=== PATIENT | male | born 1955 | race Caucasian/White ===

== ENCOUNTER 2022-11-08 12:52 | Day surgery (SDC) | payer MEDICARE ==
[~2022-11-08] VITALS: Ht 177.8 cm; Wt 55.4 kg
[2022-11-08] MEDS ORDERED: CYCL10 PO (13:24)
[2022-11-08] MEDS ORDERED: CLINGEL TOP (13:24)
[2022-11-08] MEDS ORDERED: Hydrocortiso453.6 G1 TP (13:25)
[2022-11-08] MEDS ORDERED: Prednisone10 MG (13:26)
[2022-11-08] MEDS ORDERED: RIZATRIPTAN5 MG PO (13:26)
[2022-11-08] MEDS ORDERED: Ventolin/Prove6.7 GM (13:27)
[2022-11-08] MEDS ORDERED: VALA500 (13:27)
[2022-11-08] MEDS ORDERED: SILDENAFIL CIT100 MG PO (13:27)
--- NOTE | 2022-11-08 13:39 | NUR ---
11/08/22 Nina1 Tracie Barriga PT RESTING COMFORTABLY IN BED, FELL ASLEEP AT ONE TIME. NO QUESTIONS OR CONCERNS AT THIS TIME.
--- NOTE | 2022-11-08 14:52 | NUR ---
11/08/22 1452 Rhonda Miranda LIDOCAINE 2% WITH EPI 1:100,000 VERIFIED AND DILUTED 1:1 WITH NORMAL SALINE TO MAKE LIDOCAINE 1% WITH EPI 1:200,000 FOR INJECTION AT [facility]. 3ML INJECTED INITIALLY IN PREOP. [facility] MONITORING PT FOR LOCAL NURSE SEDATION CASE.
[2022-11-08 15:14] VITALS: BP 123/81
== END 2022-11-08 15:38 | disposition home or self-care (01) ==
LOC: ORSCSDS 12:52
PROVIDERS: Otolaryngology
PROC: 03B Upper Arteries, Excision (ICD-10-PCS; principal; 2022-11-08 14:15)
DX: M31.6 Other giant cell arteritis (principal)
CPT/HCPCS: 88305; 88313; J2250; J7120

== ENCOUNTER 2023-01-02 09:57 | Emergency (ER) | payer MEDICARE ==
[~2023-01-02] VITALS: Ht 175.3 cm; Wt 56.7 kg
[~2023-01-02 09:57] MED LIST: CLINGEL TOP; CYCL10 PO; Hydrocortiso453.6 G1 TP; Prednisone10 MG; RIZATRIPTAN5 MG PO; SILDENAFIL CIT100 MG PO; VALA500; Ventolin/Prove6.7 GM
[2023-01-02 10:18] VITALS: BP 134/91
== END 2023-01-02 11:06 | disposition home or self-care (01) ==
LOC: ER 09:57
DX: A51.9 Early syphilis, unspecified (principal); Z79.899 Other long term (current) drug therapy
CPT/HCPCS: 96372; 99282-25; J0561

== ENCOUNTER 2023-01-13 14:05 | Inpatient (IN) | payer MEDICARE ==
[~2023-01-13] VITALS: Ht 177.8 cm; Wt 56.5 kg
[2023-01-13 14:41] LABS: BASOPHILS ABSOLUTE AUTO 0.04 K/mm3 (0.00-0.23); BASOPHILS PERCENT AUTO 1 % (0-2); EOSINOPHILS ABSOLUTE AUTO 0.17 K/mm3 (0.00-0.68); EOSINOPHILS PERCENT AUTO 3 % (0-6); Hematocrit 30.5 % (37.0-53.0); Hemoglobin 10.1 g/dL (13.5-17.5); IMMATURE GRAN ABSOLUTE AUTO 0.13 K/mm3 (0.00-0.10); IMMATURE GRAN PERCENT AUTO 2 % (0-1); LYMPHOCYTES ABSOLUTE AUTO 1.14 K/mm3 (0.84-5.20); LYMPHOCYTES PERCENT AUTO 18 % (21-46); MONOCYTES ABSOLUTE AUTO 0.94 K/mm3 (0.16-1.47); MONOCYTES PERCENT AUTO 15 % (4-13); Mean Corpuscular HGB 30.8 pg (26.0-34.0); Mean Corpuscular HGB Conc 33.1 g/dL (31.5-36.5); Mean Corpuscular Volume 93 fL (80-100); NEUTROPHILS ABSOLUTE AUTO 3.98 K/mm3 (1.96-9.15); NEUTROPHILS PERCENT AUTO 62 % (41-73); Platelet Count 479 K/mm3 (150-400); RDW Coefficient Variation 16.3 % (11.7-14.2); RDW Standard Deviation 55.9 fL (35.1-46.3); Red Blood Cell Count 3.28 M/mm3 (4.30-5.90)
[2023-01-13 14:58] LABS: Albumin, Blood 2.4 g/dL (3.4-5.0); Albumin/Globulin Ratio 0.4 (0.8-1.8); Bilirubin, Total 0.3 mg/dL (0.1-1.0); Bun/Creatinine Ratio 16.1 (12.0-20.0); Calcium, Blood 9.2 mg/dL (8.5-10.1); Creatinine, Blood 1.18 mg/dL (0.60-1.20); Globulin, Blood 5.4 g/dL (2.2-4.0); Potassium, Blood 4.1 mmol/L (3.5-5.5); Total Protein, Blood 7.8 g/dL (6.4-8.2)
[2023-01-13 17:37] LABS: Glucose, CSF 57 mg/dL (40-70)
[2023-01-13 17:51] LABS: RBC Count, CSF 45 /mm3 (0-0); WBC Count, CSF 8 /mm3 (0-5)
[2023-01-13 17:52] LABS: Appearance, CSF Clear (Clear); Color, CSF No Color (No Color)
[2023-01-13 18:11] LABS: Appearance, CSF Clear (Clear); Color, CSF No Color (No Color)
[2023-01-13 18:12] LABS: RBC Count, CSF 1 /mm3 (0-0); WBC Count, CSF 7 /mm3 (0-5)
[2023-01-13 18:22] LABS: Cryptococcus Neoformans/Gattii Not Detected (NOT DETECT); Enterovirus Not Detected (NOT DETECT); Escherichia Coli K1 Not Detected (NOT DETECT); Haemophilus Influenza Not Detected (NOT DETECT); Herpes Simplex Virus 1 Not Detected (NOT DETECT); Herpes Simplex Virus 2 Not Detected (NOT DETECT); Human Herpesvirus 6 Not Detected (NOT DETECT); Human Parechovirus Not Detected (NOT DETECT); Listeria Monocytogenes Not Detected (NOT DETECT); Neisseria Meningitidis Not Detected (NOT DETECT); Streptococcus Agalactiae Not Detected (NOT DETECT); Streptococcus Pneumoniae Not Detected (NOT DETECT); Varicella Zoster Virus Not Detected (NOT DETECT)
[2023-01-13 18:28] VITALS: BP 151/94
--- NOTE | 2023-01-13 18:49 | NUR ---
ADMISSION NOTE: PATIENT ARRIVES IN ROOM VIA WHEELCHAIR AT AROUND 1823 FROM ER FOR DX'S OF L OCULAR SYPHYLLIS. PATIENT IS A/OX4. CALM, PLEASANT AND COOPERATIVE c CARE. ORIENTATED TO ROOM AND CALL LIGHTS. MEDRIC, ADMISSION, SKIN ASSESSMENT c 2 RN VRIFIERS COMPLETED. NOTED TO HAVE SCAB TO BUE AND R LEG, BRUISING TO BUE SCATTERED T/O AND SKIN DRYNESS. PATIENT REPORTS LIMITED VISION TO L EYE. PATIENT HAD LUMBAR PUNCTURE DONE IN ED, AWAITING FOR RESULT. VITAL SIGNS REVIEWED. PATIENT IS ON REGULAR DIET. CALL LIGHT IN REACH. BEDSIDE REPORT GIVEN TO JACOB ESCALERA RN AND ERIC CABAN.
[2023-01-13 18:50] LABS: Lymphocytes, CSF 67 % (40-80); Monocytes, CSF 32 % (15-45); Neutrophils, CSF 1 % (0-6)
[2023-01-13 18:56] LABS: Lymphocytes, CSF 82 % (40-80); Monocytes, CSF 18 % (15-45)
[2023-01-14 03:59] VITALS: BP 99/75
[2023-01-14 04:21] LABS: BASOPHILS ABSOLUTE AUTO 0.03 K/mm3 (0.00-0.23); BASOPHILS PERCENT AUTO 1 % (0-2); EOSINOPHILS ABSOLUTE AUTO 0.25 K/mm3 (0.00-0.68); EOSINOPHILS PERCENT AUTO 4 % (0-6); Hematocrit 27.3 % (37.0-53.0); Hemoglobin 9.1 g/dL (13.5-17.5); IMMATURE GRAN PERCENT AUTO 2 % (0-1); LYMPHOCYTES ABSOLUTE AUTO 1.14 K/mm3 (0.84-5.20); LYMPHOCYTES PERCENT AUTO 20 % (21-46); MONOCYTES ABSOLUTE AUTO 0.85 K/mm3 (0.16-1.47); MONOCYTES PERCENT AUTO 15 % (4-13); Mean Corpuscular HGB 30.7 pg (26.0-34.0); Mean Corpuscular HGB Conc 33.3 g/dL (31.5-36.5); Mean Corpuscular Volume 92 fL (80-100); Mean Platelet Volume 8.9 fL (9.1-12.4); NEUTROPHILS ABSOLUTE AUTO 3.48 K/mm3 (1.96-9.15); NEUTROPHILS PERCENT AUTO 60 % (41-73); Platelet Count 454 K/mm3 (150-400); RDW Coefficient Variation 16.7 % (11.7-14.2); RDW Standard Deviation 56.4 fL (35.1-46.3); Red Blood Cell Count 2.96 M/mm3 (4.30-5.90); White Blood Cell Count 5.85 K/mm3 (4.00-11.30)
[2023-01-14 04:46] LABS: Albumin, Blood 2.1 g/dL (3.4-5.0); Albumin/Globulin Ratio 0.4 (0.8-1.8); Bilirubin, Total 0.4 mg/dL (0.1-1.0); Calcium, Blood 8.6 mg/dL (8.5-10.1); Creatinine, Blood 1.23 mg/dL (0.60-1.20); Globulin, Blood 4.9 g/dL (2.2-4.0); Potassium, Blood 4.2 mmol/L (3.5-5.5)
--- NOTE | 2023-01-14 04:46 | NUR ---
PT IS ALERT AND ORIENTED TO PERSON, PLACE, SELF, AND SITUATION. PT HAS BEEN INDEPENDENT IN ROOM, SCDS IN PLACE AND ON. PT DENIES CHEST PAIN/PRESSURE PT IS COOPERATIVE WITH CARE AND BALE TO MAKE HIS NEEDS KNOWN. PT SLEEPING T/O MOST OF SHIFT; RESPIRATIONS EQUAL AND UNLABORED. BED IS LOCKED IN THE LOWEST POSITION WITH CALL LIGHT IN REACH. NO S/S OF DISTRESS NOTED AT THIS TIME.
[2023-01-14 07:30] VITALS: BP 107/71
[2023-01-14 15:19] VITALS: BP 107/65
--- NOTE | 2023-01-14 18:37 | NUR ---
SHIFT SUMMARY PT AOX4, INDEPENDENT IN THE ROOM. STARTED ON CIWA PROTOCOL THIS SHIFT, SCORING IN THE CHART. NO COMPLAINTS FROM THE PT THIS SHIFT. CALL LIGHT WITHIN REACH, BED IN THE LOWEST POSITION. WILL REPORT TO ONCOMING NURSE.
[2023-01-14 19:30] VITALS: BP 120/75
--- NOTE | 2023-01-15 03:30 | NUR ---
PT REPORTS MILD HEADACHE, ASKED PT IS HE WOULD LIKE SOMETHING FOR A HEADACHE; PT RESPONDED "YES". CALLED AND NOTIFIED OF HEADACHE AND ORDERED 650MG OF TYLENOL Q6H FOR MILD PAIN/FEVER.
[2023-01-15 04:09] VITALS: BP 123/78
--- NOTE | 2023-01-15 04:35 | NUR ---
SHIFT SUMMARY PT ALERT AND ORIENTED TO PERSON/SELF, PLACE, TIME, AND SITUATION. PT IS PLEASANT AND COOPERATIVE WITH CARE. PT IS UP INDEPENDENTLY IN ROOM WITH STEADY GAIT. PT HAS SLEPT T/O MOST OF SHIFT; RESPIRATIONS EQUAL AND UNLABORED. PT IS ABLE TO MAKE HIS NEEDS KNOWN AND CALLS APPROPRIATELY. PT DENIES CHEST PAIN/PRESSURE/TIGHTNESS. PT C/O A MILD HEADACHE PAIN, HOSPITALIST CALLED AND ORDERED 650MG OF TYLENOL Q6H PRN FOR MILD PAIN/FEVER; PT MEDICATED PER EMAR AND REPORTS REDUCED PAIN. CIWAS DONE PER PROTOCOL. BED IS LOCKED IN THE LOWEST POSITION WITH CALL LIGHT IN REACH. NO S/S OF DISTRESS NOTED.
--- NOTE | 2023-01-15 05:23 | NUR ---
SHIFT SUMMARY PT IS ALERT AND ORIENTED TO PERSON/SELF, PLACE, TIME, AND SITUATION. PT IS PLEASANT, CALM AND COOPERATIVE WITH CARE. PT DENIES CHEST PAIN/PRESSURE/TIGHTNESS. PT HAS HEPARIN RUNNING AT 13.5U/KG/HR OR 26.2ML/HR; JACOB Arias RN VERIFIED. PT HAS SLEPT OFF AND T/O SHIFT; RESPIRATIONS EQUAL AND UNLABORED. PT IS ABLE TO MAKE HIS NEEDS KNOWN AND CALLS APPROPRIATELY. PT HAS BEEN NPO SINCE MIDNIGHT; DAY SHIFT REPORTED HE IS TO FINISH THE SECOND HALF OF HIS STRESS TEST TODAY 01/15/23. PT HAS USED THE URINAL T/O THE NIGHT WITH ATTENDS IN PLACE. BED IS LOCKED IN THE LOWEST POSITION WITH CALL LIGHT IN REACH.
[2023-01-15 07:56] VITALS: BP 115/82
[2023-01-15 15:48] VITALS: BP 121/84
--- NOTE | 2023-01-15 17:47 | NUR ---
SHIFT SUMMARY NO ACUTE CHANGES THIS SHIFT. PT'S CIWA SCORE REMAINS LOW. MEDICATED FOR A GARCIA PER THE EMAR. ATTEMPTED TO GIVE THE PT A POWERGLIDE BUT HE REFUSED. HE WILL BE HERE FOR 2 WEEKS GETTING IV ABX PER DR. HERNANDES. HE IS SOFT SPOKE AND DOES NOT CALL OFTEN. CALL LIGHT WITHIN REACH, BED IN THE LOWEST POSITION. WILL REPORT TO ONCOMING NURSE.
[2023-01-15 19:17] VITALS: BP 106/71
[2023-01-16 03:21] VITALS: BP 117/78
--- NOTE | 2023-01-16 03:47 | NUR ---
SHIFT SUMMARY PATIENT A/Ox4, VSS, SPO2 97% ON RA. DENIES PAIN NOR DISCOMFORT. WITHOUT S/SX OF ETOH WITHDRAWAL. CONTINUES ON IV ABX THERAPY, TOLERATING WELL. NO ACUTE CHANGES NOTED OVERNIGHT. BED LOCKED AND IN THE LOWEST POSITION, CALL LIGHT WITHIN REACH.
[2023-01-16 05:45] LABS: BASOPHILS ABSOLUTE AUTO 0.04 K/mm3 (0.00-0.23); BASOPHILS PERCENT AUTO 1 % (0-2); EOSINOPHILS ABSOLUTE AUTO 0.26 K/mm3 (0.00-0.68); EOSINOPHILS PERCENT AUTO 3 % (0-6); Hematocrit 30.4 % (37.0-53.0); Hemoglobin 9.9 g/dL (13.5-17.5); IMMATURE GRAN ABSOLUTE AUTO 0.12 K/mm3 (0.00-0.10); IMMATURE GRAN PERCENT AUTO 2 % (0-1); LYMPHOCYTES ABSOLUTE AUTO 1.51 K/mm3 (0.84-5.20); LYMPHOCYTES PERCENT AUTO 20 % (21-46); MONOCYTES ABSOLUTE AUTO 0.88 K/mm3 (0.16-1.47); MONOCYTES PERCENT AUTO 12 % (4-13); Mean Corpuscular HGB 29.6 pg (26.0-34.0); Mean Corpuscular HGB Conc 32.6 g/dL (31.5-36.5); Mean Corpuscular Volume 91 fL (80-100); Mean Platelet Volume 8.7 fL (9.1-12.4); NEUTROPHILS ABSOLUTE AUTO 4.85 K/mm3 (1.96-9.15); NEUTROPHILS PERCENT AUTO 63 % (41-73); Platelet Count 527 K/mm3 (150-400); RDW Coefficient Variation 16.3 % (11.7-14.2); RDW Standard Deviation 54.5 fL (35.1-46.3); Red Blood Cell Count 3.34 M/mm3 (4.30-5.90); White Blood Cell Count 7.66 K/mm3 (4.00-11.30)
[2023-01-16 06:24] LABS: Albumin, Blood 2.1 g/dL (3.4-5.0); Anion Gap 4 mmol/L (6-16); Blood Urea Nitrogen 13 mg/dL (8-24); CO2, Blood 27 mmol/L (21-32); Calcium, Blood 8.9 mg/dL (8.5-10.1); Chloride, Blood 104 mmol/L (98-108); Creatinine, Blood 1.08 mg/dL (0.60-1.20); Glomerular Filtration Rate 76 (60-); Glucose, Blood 127 mg/dL (70-99); Magnesium, Blood 2.2 mg/dL (1.6-2.4); Phosphorus, Blood 2.7 mg/dL (2.5-4.9); Potassium, Blood 4.6 mmol/L (3.5-5.5); Sodium, Blood 135 mmol/L (136-145)
[2023-01-16 07:30] VITALS: BP 132/81
[2023-01-16 15:58] VITALS: BP 131/70
[2023-01-16] MEDS ORDERED: Prednisone10 MG PO (16:37)
[2023-01-16] MEDS ORDERED: VALA500 PO (16:37)
[2023-01-16] MEDS ORDERED: PEPCID40 MG PO (16:38)
--- NOTE | 2023-01-16 18:27 | NUR ---
SHIFT SUMMARY: PT A&O X4. PT PLEASANT AND COOPERATIVE WITH ALL CARE. INDEPENDENT IN ROOM. PT RECEIVED PG IN VASU THIS SHIFT DUE TO PAIN/BURNING W/ PERIPHERAL IV ABX. FLUSHES AND DRAWS WELL. NO S/SX ALCOHOL WITHDRAWAL. RECEIVING IV PENICILLIN Q4 TOLERATING WELL. PT C/O HEADACHE TWICE THIS SHIFT. MEDICATED PER EMAR. CALL LIGHT IN REACH. WILL REPORT TO ONCOMING RN.
[2023-01-16 19:16] VITALS: BP 127/82
[2023-01-17 04:17] VITALS: BP 116/68
--- NOTE | 2023-01-17 04:35 | NUR ---
SHIFT SUMMARY PATIENT A/Ox4, VSS, SPO2 100% ON RA. WITHOUT C/O PAIN NOR DISCOMFORT STATED THIS SHIFT. NO S/Sx OF ETOH WITHDRAWAL. CONTINUES ON IV ABX THERAPY, TOLERATING WELL. PG TO VASU, PATENT, FLUSHING WELL. NO ACUTE CHANGES NOTED OVERNIGHT. BED LOCKED AND IN THE LOWEST POSITION, CALL LIGHT WITHIN REACH.
[2023-01-17 07:45] VITALS: BP 129/89
[2023-01-17 15:29] VITALS: BP 115/77
--- NOTE | 2023-01-17 17:37 | NUR ---
DAYSHIFT SUMMARY Patient alert & oriented x4, independent in the room. Reports no vision in left eye, pupil oval shaped and does not react to light. Patient denies pain or discomfort. Vital signs stable. IV Penicillin administred Q4H.
[2023-01-17 19:06] VITALS: BP 105/66
--- NOTE | 2023-01-18 04:50 | NUR ---
SHIFT SUMMARY PATIENT A/Ox4, PLEASANT AFFECT. WITHOUT C/O PAIN NOR DISCOMFORT STATED THIS SHIFT. CONTINUES ON IV ABX THERAPY, TOLERATING WELL. PG TO VASU, PATENT, FLUSHING WELL. INDEPENDENT IN ROOM. NO ACUTE CHANGES NOTED OVERNIGHT. BED LOCKED AND IN THE LOWEST POSITION, CALL LIGHT WITHIN REACH.
[2023-01-18 07:53] VITALS: BP 120/83
--- NOTE | 2023-01-18 11:10 | NUR ---
ASSUMED CARE OF PATIENT REPORT RECEIVED FROM DOMO REYES. ASSUMED CARE OF PATIENT
[2023-01-18] MEDS ORDERED: B-1100 M1 PO (12:47)
[2023-01-18] MEDS ORDERED: FOLI1 PO (12:47)
[2023-01-18] MEDS ORDERED: ACET325 PO (12:47)
[2023-01-18] MEDS ORDERED: [UNRECOGNIZED DRUG - CODE] IV (12:50)
[2023-01-18 13:47] LABS: SARS-Cov-2 (COVID-19) PCR, MMC NEGATIVE (NEGATIVE)
--- NOTE | 2023-01-18 17:00 | NUR ---
SHIFT SUMMARY AND DISCHARGE PATIENT DISCHARGED TO [facility]. PATIENT ALERT AND INDEPENDENT IN THE ROOM. PATIENT CONTINUES TO HAVE MILD HEADACHE AROUND L EYE. REPORT CALLED TO [facility] PRIOR TO DISCHARGE. POWER GLIDE IN PLACE AT DISCHARGE IN R UPPER ARM. DISCHARGE PAPERS SENT WITH TRANSPORT.
== END 2023-01-18 17:04 | DRG 125 ==
LOC: ER 14:05 → MEDS 18:00
PROVIDERS: Family Medicine; Student in an Organized Health Care Education/Training Program; ADMIT Internal Medicine
PROC: 009U3ZX Drainage of Spinal Canal, Percutaneous Approach, Diagnostic (ICD-10-PCS; principal; 2023-01-13)
DX: A52.71 Late syphilitic oculopathy (principal); N18.31 Chronic kidney disease, stage 3a; E78.5 Hyperlipidemia, unspecified; J44.9 Chronic obstructive pulmonary disease, unspecified; Z66 Do not resuscitate; G43.909 Migraine, unspecified, not intractable, without status migrainosus; I73.9 Peripheral vascular disease, unspecified; N52.9 Male erectile dysfunction, unspecified; G25.81 Restless legs syndrome
CPT/HCPCS: 36415; 62270; 80053; 80069; 82945; 83735; 84157; 85025; 86592; 87070; 87205; 87483; 89051; 94760; 96365-59; 99285-25; A9270; C1751; J2540; J3411; J7050; U0002

== ENCOUNTER 2025-02-25 09:12 | Day surgery (SDC) | payer MEDICARE ==
[~2025-02-25] VITALS: Ht 86.4 cm; Wt 51.2 kg
[~2025-02-25 09:12] MED LIST changes: +ACET325 PO; +B-1100 M1 PO; +Balanced Salt Epinephrine Irrigation Solution 500 mL IR SCH; +FOLI1 PO; +Moxifloxacin HCL 0.5 MG/0.1 ML 0.4MLSYR RIGHTEYE SCH; +Ondansetron 4 MG SoluTab MM PRN; +PEPCID40 MG PO; +PHENYLEPHRINE\\TROPICAMIDE\\TETRACAINE OPHTHALMIC DILATING SOLN RIGHTEYE PRN; +Povidone-Iodine 450 DROP/30 ML Solution ONE; +Povidone-Iodine 450 DROP/30 ML Solution RIGHTEYE SCH; +Prednisone10 MG PO; +Tetracaine HCl/Pf 0.5% Opth Soln 4 ml ONE; +Triamcinolone Inj Susp 40 MG / ML 1ML Vial INJ SCH; +Triamcinolone Inj Susp 40 MG / ML 1ML Vial ONE; +VALA500 PO; +[UNRECOGNIZED DRUG - CODE] IV
[2025-02-25] MEDS ORDERED: REVATIO20 MG PO (09:32)
--- NOTE | 2025-02-25 09:39 | NUR ---
02/25/25 0939 TARIK PARMAR 2438 REPORTS ANXIETY 5/10 ON 0-10 SCALE. RESTING ON GURNEY, RAILS UP. CALL LIGHT IN REACH. DENIES NEEDS/QUESTIONS AT THIS TIME.
--- NOTE | 2025-02-25 09:52 | NUR ---
02/25/25 0952 Tracie Barriga 0950 BP:109/62 HR:68 O2:97% RESP:16
--- NOTE | 2025-02-25 10:29 | NUR ---
02/25/25 1029 Ortiz Keller PT REPORTED TOLERABLE 5/10 R EYE PAIN UPON D/C. HE APPEARED ALERT AND RELAXED AND EXPRESSED READINESS TO RETURN HOME.
[2025-02-25 10:33] VITALS: BP 116/71
== END 2025-02-25 10:22 | disposition home or self-care (01) ==
LOC: ORSCSDS 09:12
PROVIDERS: Ophthalmology
PROC: 08RJ3JZ Replacement of Right Lens with Synthetic Substitute, Percutaneous Approach (ICD-10-PCS; principal; 2025-02-25 10:30)
DX: H25.811 Combined forms of age-related cataract, right eye (principal); H21.81 Floppy iris syndrome; Z96.1 Presence of intraocular lens; G25.81 Restless legs syndrome; Z79.899 Other long term (current) drug therapy
CPT/HCPCS: A9270; J3301; V2632